=== PATIENT | male | born 1990 | race Caucasian/White ===

== ENCOUNTER 2019-06-07 15:14 | Emergency (ER) | payer BC, OTHER ==
[~2019-06-07] VITALS: Ht 170.2 cm; Wt 107.2 kg
[2019-06-07 15:27] VITALS: BP 138/92
[2019-06-07] MEDS ORDERED: ACETAMINOPHEN EXTRA STRENGTH 500 MG TAB PO ONE (15:35)
[2019-06-07] MEDS ORDERED: IBUPROFEN 600 MG TAB PO ONE (15:35)
[2019-06-07] MEDS ORDERED: ACETAMINOPHEN EXTRA STRENGTH 500 MG TAB ONE (15:45)
[2019-06-07] MEDS ORDERED: IBUPROFEN 600 MG TAB ONE (15:45)
--- NOTE | 2019-06-07 17:10 | NUR ---
PT AMBULATED TO BED 12.
--- NOTE | 2019-06-07 17:20 | NUR ---
PT IS A 29 Y/O MALE WHO PRESENTS TO THE ED C/O COUGH. PT STATES THAT SYMPTOMS HAVE BEEN GOING ON X3 DAYS. TOOK MUCINEX AND NYQUIL WITH NO RELIEF. PT REPORTS COUGH. PT DENIES PAIN AT THIS TIME. PT DENIES CP, N/V/D. NOTED NON-PRODUCTIVE COUGH, RR EVEN/UNLABORED. PT AWAKE AND ALERT, REPOSITIONED FOR COMFORT, BED IN LOWEST POSITION. ER MD DR. CASTILLO NOTIFIED. WILL CONTINUE TO MONITOR. MEDHX:DENIES NKA
--- NOTE | 2019-06-07 17:32 | NUR ---
DR CASTILLO AT BEDSIDE FOR PT EVAL
--- NOTE | 2019-06-07 18:25 | NUR ---
PT AAO X4. CONVERSATING APPROPRIATELY. NO SIGNS AND SYMPTOMS OF DISTRESS NOTED. EVEN AND UNLABORED BREATHING.
[2019-06-07 19:06] VITALS: BP 138/74
--- NOTE | 2019-06-07 19:06 | NUR ---
Patient discharged with v/s stable. Written and verbal after care instructions given and explained. Patient verbalized understanding. Ambulatory with steady gait. All questions addressed prior to discharge. Advised to follow up with PMD.
== END 2019-06-07 19:06 | disposition home or self-care (01) ==
LOC: MED 15:14
DX: J06.9 Acute upper respiratory infection, unspecified (principal)
CPT/HCPCS: 71046; 87081; 99284